=== PATIENT | female | born 1945 | race Caucasian/White ===

== ENCOUNTER 2018-02-16 14:39 | Inpatient (IN) | payer OTHER ==
[~2018-02-16] VITALS: Ht 160 cm; Wt 63.0 kg
[2018-02-16 14:39] VITALS: BP_SYST 140
[2018-02-16 15:24] LABS: ANION GAP 12 (5-15); CALCIUM 10.5 mg/dL (8.4-11.0); CHLORIDE 106 mmol/L (98-107); CREATININE 1.45 mg/dL (0.55-1.30); GLUCOSE 142 mg/dL (70-99); POTASSIUM 3.7 mmol/L (3.5-5.1); SODIUM SERUM 143 mmol/L (136-145); UREA NITROGEN, BLOOD 15 mg/dL (8-21)
[2018-02-16 15:27] LABS: BASOPHILS # (AUTO) 0.1 K/uL (0.0-0.2); BASOPHILS % (AUTO) 0.8 % (0.0-2.0); EOSINOPHILS # (AUTO) 0.2 K/uL (0.0-0.4); EOSINOPHILS % (AUTO) 2.2 % (0.0-4.0); HEMATOCRIT 47.7 % (36-48); HEMOGLOBIN 16.4 g/dL (12.0-16.0); LYMPHOCYTES # (AUTO) 2.1 K/uL (1.0-5.5); LYMPHOCYTES % (AUTO) 31.2 % (20.5-51.5); MEAN CORPUSCULAR HEMOGLOBIN 32 pg (27-31); MEAN CORPUSCULAR HGB CONC 34 % (32-36); MEAN CORPUSCULAR VOLUME 92 fL (79.0-98.0); MONOCYTES # (AUTO) 0.8 K/uL (0.0-1.0); MONOCYTES % (AUTO) 11.1 % (1.7-9.3); NEUTROPHILS # (AUTO) 3.7 K/uL (1.8-7.7); NEUTROPHILS % (AUTO) 54.7 % (40.0-70.0); PLATELET COUNT (AUTO) 163 K/uL (130-430); PROTHROMBIN TIME 9.7 SECS (9.5-12.5); RED BLOOD CELL COUNT(AUTO) 5.18 MIL/uL (4.2-6.2); RED CELL DISTRIBUTION WIDTH 13.5 % (9.0-15.0); WHITE BLOOD COUNT (AUTO) 6.9 K/uL (4.8-10.8)
[2018-02-16 15:29] LABS: ALANINE AMINOTRANSFERASE 22 U/L (12-78); ALBUMIN 3.7 g/dL (3.4-4.8); ASPARTATE AMINOTRANSFERASE 18 U/L (10-37); TOTAL BILIRUBIN 0.7 mg/dL (0.0-1.0)
[2018-02-16 15:30] LABS: ALCOHOL, BLOOD < 3 mg/dL (<10)
[2018-02-16] MEDS ORDERED: ASPIRIN 325 MG TABLET PO ONE (16:15)
[2018-02-16 16:53] LABS: BILIRUBIN,URINE NEGATIVE (NEGATIVE); BLOOD, URINE NEGATIVE (NEGATIVE); CLARITY/URINE SL CLOUDY (CLEAR); COLOR,URINE YELLOW (YELLOW); GLUCOSE,URINE NEGATIVE (NEGATIVE); KETONES,URINE NEGATIVE (NEGATIVE); LEUKOCYTE ESTERASE ,URINE 1+ (NEGATIVE); NITRITE, URINE NEGATIVE (NEGATIVE); PH,URINE 5.5 (5.0-8.0); PROTEIN URINE TRACE (NEGATIVE); UROBILINOGEN,URINE 0.2 (0.2-1.0)
[2018-02-16 17:00] LABS: BACTERIA,URINE MODERATE /HPF (None Seen); RBC,URINE 0-3 /HPF (0-3)
[2018-02-16 17:01] LABS: MUCUS,URINE 2+ /LPF (None Seen)
[2018-02-16 17:02] LABS: BARBITURATE, URINE NEGATIVE (NEG <=200); BENZODIAZEPINE, URINE NEGATIVE (NEG <=150); CANNABINOID, URINE NEGATIVE (NEG <=50); COCAINE, URINE NEGATIVE (NEG <=150); METHAMPHETAMINES SCREEN,URINE NEGATIVE (NEG <=500); OPIATE, URINE NEGATIVE (NEG <=100); PHENCYCLIDINE SCREEN,URINE NEGATIVE (NEG <=25); UR TRICYCLIC ANTIDEPRESSANTS NEGATIVE (NEG <=300); URINE AMPHETAMINE NEGATIVE (NEG <=500); URINE METHADONE NEGATIVE (NEG <=200); URINE OXYCODONE SCREEN NEGATIVE (NEG <=100); URINE PROPOXYPHENE SCREEN NEGATIVE (NEG <=300)
[2018-02-16 17:10] VITALS: BP_SYST 155
[2018-02-16] MEDS ORDERED: MELO15TA13 PO (19:01)
[2018-02-16] MEDS ORDERED: ALEN70TA3 PO (19:01)
[2018-02-16] MEDS ORDERED: SER25 PO (19:01)
[2018-02-16] MEDS ORDERED: LIP40 PO (19:01)
[2018-02-16] MEDS ORDERED: PRO40 PO (19:01)
[2018-02-16] MEDS ORDERED: LISI-600 PO (19:01)
[2018-02-16] MEDS ORDERED: BUME1TAB4 PO (19:01)
[2018-02-16] MEDS ORDERED: ASPI-1153 PO (19:01)
[2018-02-16] MEDS ORDERED: POTA10TA15 PO (19:01)
[2018-02-16] MEDS ORDERED: CLOP75TA2 PO (19:01)
[2018-02-16] MEDS ORDERED: METO25TA6 PO (19:01)
[2018-02-16 20:58] VITALS: BP_SYST 115
[2018-02-16] MEDS: METOPROLOL TARTRATE 25 MG TABLET PO SCH (21:22)
[2018-02-17 00:42] VITALS: BP_SYST 119
[2018-02-17 08:00] VITALS: BP_SYST 117
[2018-02-17] MEDS ORDERED: ATORVASTATIN 20 MG TABLET PO SCH (09:00)
[2018-02-17] MEDS: METOPROLOL TARTRATE 25 MG TABLET PO SCH (09:25)
[2018-02-17] MEDS ORDERED: POTASSIUM CHLORIDE 10 MEQ TAB.PRT.SR PO ONE (11:45)
[2018-02-17] MEDS ORDERED: PANTOPRAZOLE SODIUM 40 MG TAB PO ONE (11:45)
[2018-02-17] MEDS ORDERED: LISINOPRIL 20 MG TABLET PO ONE (11:45)
[2018-02-17] MEDS ORDERED: ASPIRIN 81 MG TABLET(ECOTRIN) PO ONE (11:45)
[2018-02-17] MEDS ORDERED: BUMETANIDE 1 MG TABLET PO SCH (12:00)
[2018-02-17 12:11] VITALS: BP_SYST 123
[2018-02-17 16:09] VITALS: BP_SYST 149
[2018-02-17 16:29] VITALS: BP_SYST 149
[2018-02-17] MEDS ORDERED: QUEtiapine FUMARATE 25 MG TABLET PO SCH (21:00)
[2018-02-18] MEDS ORDERED: CLOPIDOGREL BISULFATE 75 MG TABLET PO SCH (09:00)
[2018-02-18] MEDS ORDERED: ASPIRIN 81 MG TABLET(ECOTRIN) PO SCH (09:00)
[2018-02-18] MEDS ORDERED: PANTOPRAZOLE SODIUM 40 MG TAB PO SCH (09:00)
[2018-02-18] MEDS ORDERED: POTASSIUM CHLORIDE 10 MEQ TAB.PRT.SR PO SCH (09:00)
[2018-02-18] MEDS ORDERED: LISINOPRIL 20 MG TABLET PO SCH (09:00)
== END 2018-02-17 17:14 | disposition home or self-care (01) | DRG 312 ==
LOC: SED 14:39 → SMU 16:37 → STU 16:41
PROVIDERS: ADMIT Internal Medicine Hospice and Palliative Medicine; ATTEND Internal Medicine Hospice and Palliative Medicine
DX: R55 Syncope and collapse (principal); R27.0 Ataxia, unspecified; R29.6 Repeated falls; I10 Essential (primary) hypertension; F17.210 Nicotine dependence, cigarettes, uncomplicated; E11.9 Type 2 diabetes mellitus without complications; Z86.73 Personal history of transient ischemic attack (TIA), and cerebral infarction without residual deficits; Z95.1 Presence of aortocoronary bypass graft; Z91.81 History of falling
CPT/HCPCS: 36415; 70450-TC; 70551; 71045; 72141; 73564; 80053; 80307; 81000-TC; 82607; 84443-TC; 84484; 85025; 85610-TC; 85730-TC; 87086; 87186-TC; 93005; 93306; 93880; G0482